=== PATIENT | male | born 1970 | race Caucasian/White ===

== ENCOUNTER → 2019-04-24 | Outpatient (CLI) | payer BC | LOC: GMAM 16:59 | PROVIDERS: ATTEND Family Medicine | DX: Z12.5 Encounter for screening for malignant neoplasm of prostate (principal); Z72.52 High risk homosexual behavior; Z13.220 Encounter for screening for lipoid disorders; R05 Cough ==

== ENCOUNTER → 2020-05-15 | Outpatient (CLI) | payer BC | LOC: YCFC.O 05-14 11:00 | PROVIDERS: ATTEND Nurse Practitioner Family | DX: Z72.51 High risk heterosexual behavior (principal) ==